=== PATIENT | female | born 1965 | race Caucasian/White ===

== ENCOUNTER 2019-04-11 12:23 | Day surgery (SDC) | payer OTHER ==
[~2019-04-11] VITALS: Ht 165.1 cm; Wt 71.3 kg
[2019-04-11 13:57] VITALS: Ht 165.1 cm; Wt 71.3 kg
[2019-04-11 13:58] VITALS: BP 109/53; PULSE 61; RESP 14
[2019-04-11] MEDS ORDERED: MIDAZOLAM 1 MG/ML 2 ML INJ ONE ×2 (15:51)
[2019-04-11] MEDS ORDERED: FENTAnyl 50 MCG/ML VIAL ONE (15:51)
[2019-04-11 15:55] VITALS: BP 132/65; PULSE 51; RESP 18
== END 2019-04-11 21:52 | disposition home or self-care (01) ==
LOC: GIL 12:23
PROVIDERS: ATTEND Internal Medicine Gastroenterology
DX: Z12.11 Encounter for screening for malignant neoplasm of colon (principal); K64.8 Other hemorrhoids; K21.9 Gastro-esophageal reflux disease without esophagitis; K29.60 Other gastritis without bleeding
CPT/HCPCS: 43239; 45378; 88305; J2250; J3010